=== PATIENT | male | born 1965 | race Caucasian/White ===

== ENCOUNTER 2016-12-25 09:25 | Emergency (ER) | payer BC ==
[~2016-12-25] VITALS: Ht 182.9 cm; Wt 90.7 kg
--- NOTE | 2016-12-25 10:48 | NUR ---
Patient discharged to home in stable conditon. Written and verbal after care instructions given. Patient verbalizes understanding of instructions.pt walks in steady gait.
== END 2016-12-25 10:52 | disposition home or self-care (01) ==
LOC: ER 09:25 → EDBD 09:25 → ER 10:52
DX: S62.102A Fracture of unspecified carpal bone, left wrist, initial encounter for closed fracture (principal); W19.XXXA Unspecified fall, initial encounter; Y93.89 Activity, other specified; Y92.89 Other specified places as the place of occurrence of the external cause; Y99.8 Other external cause status
CPT/HCPCS: 73110; A4663